=== PATIENT | male | born 1970 | race Two or more races ===

== ENCOUNTER → 2024-09-24 | Outpatient (CLI) | payer BC, SELFPAY ==
--- NOTE | 2024-09-24 14:30 | XR_ITS ---
Examination: MRI brain without intravenous contrast. Date and time of exam: September 24, 2024 1445 hours INDICATIONS: Head injury 2019 with head pain seizures COMPARISON: December 11, 2021 Technique: Multiple axial and sagittal images of the brain obtained. Siemens high-resolution 1.5 [employer] short bore scanners utilized. Sagittal sections, T1-weighted, TR 500, TE 14, are performed. Axial sections proton-density and T2-weighted have been obtained. Inversion recovery axial images, TR 9, 260, TE 111, TI 2500. Diffusion weighted images, axial sections, TR 4800, TE 128, B value 1000 Axial sections, ADC map, TR 4800, TE 128 Findings: Enlargement of the sella turcica is not present. The optic chiasm and infundibular are not remarkable. Prepontine and interpeduncular cisterns are not enlarged. There is no localized enlargement of the medulla or luis a. Fourth ventricle and cerebellar tonsils appear normal in position. No subacute area of hemorrhage density is seen. Mass in the cerebellopontine angle region is not evident. Globes symmetrical. Orbital musculature including medial lateral rectus muscles do not exhibit abnormality. Diffusion-weighted images demonstrate no focus of restricted diffusion. Subtle punctate foci increased signal in the right frontal white matter FLAIR image 16 Mass effect upon the ventricular system is not identified. Impression: Subtle punctate foci increased signal in the right frontal white matter FLAIR image 16, consider demyelinating disease
== END | disposition home or self-care (01) ==
LOC: SMRI 14:04
PROVIDERS: PCP Physician Assistant; Referring Provider Physician Assistant; Visit Provider Physician Assistant
DX: R90.82 White matter disease, unspecified (principal)
CPT/HCPCS: 70551